=== PATIENT | female | born 1990 | race Caucasian/White ===

== ENCOUNTER 2022-02-02 12:36 | Outpatient (CLI) | payer OTHER, SELFPAY ==
--- NOTE | 2022-02-02 13:00 | CRLHL7_ITS ---
For Patients: As a result of the Century Cures Act, medical imaging exams and procedure reports are released immediately into your electronic medical record. You may view this report before your referring provider. If you have questions, please contact your health care provider. INDICATION: Evaluate anatomy. COMPARISON: 11/07/2021 TECHNIQUE: Real time hargrove scale imaging of the fetus was performed as well as color Doppler analysis of the umbilical vessels. FINDINGS: Sonographic imaging demonstrates a single living intrauterine gestation. Fetus demonstrates a regular cardiac rate of 149 beats per minute. Fetus has a vertex position. The placenta lies posteriorly without evidence of placenta previa. The edge of the placenta is located 6.1 cm from the internal cervical os. Amniotic fluid volume appears normal. Single deepest vertical pocket: 5.0 cm. The cervix is closed and measures 5.1 cm in length. The composite ultrasound gestational age is calculated at 22 weeks 6 days with an estimated sonographic due date of 06/02/2022. The estimated weight is 492 grams which lies at the 59th %. The following biometric measurements were obtained: Biparietal diameter: 5.5 cm/22 weeks 6 days 78th% Head circumference: 20.7 cm/22 weeks 6 days 72nd% Abdominal circumference: 17.4 cm/22 weeks 2 days 54th% Femur length: 3.8 cm/22 weeks 0 days 41st% The HC/AC ratio measures: 1.19 range (1.05-1.01) On anatomic survey, there is a normal appearance of the cerebral ventricles, cavum septi pellucidi, cisterna magna and cerebellum. The nose, lips, and facial profile appear normal. The cervical, thoracic and lumbar spine are well visualized and appear normal. There is a normal four-chamber heart view and the left and right ventricular outflow tracts appear normal. The diaphragm and stomach appear normal. The kidneys and bladder also appear normal. Minimal bilateral pelviectasis is present measuring less than 3 millimeters, this is considered normal and does not require follow-up. There is a normal three-vessel cord and there is an eccentric cord insertion site. The four extremities appear normal. IMPRESSION: Single living intrauterine with sonographic gestational age 22 weeks 6 days and sonographic due date of 06/02/2022. Sonographic age 6 days ahead of the clinical age. Estimated weight 59th percentile. Abdominal circumference 54th percentile. Anatomic survey within normal limits. Dictated by Hernesto Harris MD @ 02/02/2022 2:57:26 PM (Electronically Signed)
== END 2022-02-02 12:37 | disposition home or self-care (01) ==
LOC: US 12:38
PROVIDERS: PCP Family Medicine; Visit Provider Advanced Practice Midwife
DX: Z34.92 Encounter for supervision of normal pregnancy, unspecified, second trimester (principal); Z3A.22 22 weeks gestation of pregnancy
CPT/HCPCS: 76805

== ENCOUNTER 2022-04-27 10:45 | Outpatient (CLI) | payer OTHER, SELFPAY ==
--- NOTE | 2022-04-27 10:45 | CRLHL7_ITS ---
For Patients: As a result of the Century Cures Act, medical imaging exams and procedure reports are released immediately into your electronic medical record. You may view this report before your referring provider. If you have questions, please contact your health care provider. INDICATION: Third trimester scan, evaluate growth. SIZE GREATER THAN DATES COMPARISON: 02/02/2022 TECHNIQUE: Real time hargrove scale imaging of the fetus was performed. FINDINGS: Sonographic imaging demonstrates a single living intrauterine gestation. Fetus demonstrates a regular cardiac rate of 152 beats per minute. Fetus has a vertex position. The placenta lies fundal. Amniotic fluid volume appears normal and there is a single deepest vertical pocket: 4.8 cm. The estimated weight is 2561gm which lies at the 73rd %. On the prior OB ultrasound exam dated 02/02/2022 the estimated weight was at the 59th%. BPD 91st percentile. HC 79th percentile. AC 74th percentile. FL 56th percentile. The HC/AC ratio measures 1.05 range (0.93-1.10). IMPRESSION: Sonographic gestational age 35 weeks 3 days and sonographic due date 05/29/2022. Sonographic age 10 days ahead of the clinical age. Estimated weight 73rd percentile. Abdominal circumference 74th percentile. Dictated by Hernesto Harris MD @ 04/27/2022 11:38:32 AM (Electronically Signed)
== END 2022-04-27 10:46 | disposition home or self-care (01) ==
LOC: US 10:46
PROVIDERS: PCP Family Medicine; Visit Provider Advanced Practice Midwife
DX: O36.63X0 Maternal care for excessive fetal growth, third trimester, not applicable or unspecified (principal); Z3A.35 35 weeks gestation of pregnancy
CPT/HCPCS: 76816

== ENCOUNTER 2022-05-04 10:10 | Outpatient (CLI) | payer OTHER, SELFPAY ==
[2022-05-05 17:17] LABS: Rapid Plasma Reagin (RPR) Non Reactive (Non Reactive)
== END 2022-05-04 10:11 | disposition home or self-care (01) ==
LOC: NFLDREF 10:10
PROVIDERS: PCP Family Medicine; Visit Provider Obstetrics & Gynecology
DX: Z34.93 Encounter for supervision of normal pregnancy, unspecified, third trimester (principal); Z3A.35 35 weeks gestation of pregnancy
CPT/HCPCS: 86592

== ENCOUNTER 2022-05-08 17:08 | Outpatient (CLI) | payer OTHER, SELFPAY ==
[2022-05-08] VITALS (8 sets, daily range): BP systolic 116–133; BP diastolic 59–75; PULSE 79–81; RESP 18; TEMP 37; O2SAT 98
--- NOTE | 2022-05-08 17:31 | PM.OBHPAP1 ---
OB - H&P; HPI Antepartum History of Present Illness Date Seen: 05/08/22 Chief complaint: MATERNITY Narrative: Gaye Orellana is a 32 year old -1-4-6 woman at 35 weeks, 4 days gestation by trimester ultrasound, MARQUIS 06/08/2022, who presented this afternoon to clinic complaining of generalized itching. This has been present for about 3 days. She does not feel it on the soles of her feet. It is the most intense in her chest, where she has some excoriations. She does report seasonal allergies, worse at this time of year. She takes Claritin on occasion, but has not recently. Upon presentation, blood pressure was elevated to 140/80. She has no history of gestational hypertension or preeclampsia. She denies any headache or visual changes. She does have continuous discomfort in her right upper quadrant. She has new onset severe pitting edema as well. She had a reactive NST in clinic. However, her labs were notable for ALT of 70, AST 56. Protein to creatinine ratio was 0.30. The remainder of her HELLP labs were normal. She was sent to the Center for observation. Her is otherwise complicated by/notable for: Repeat delivery scheduled for 38 weeks on 05/25/22. Doesn't want baby to be circumcised and doesn't want to be asked. Specific Issues/Plans Blood Type: A positive??Needs labs drawn, did not go to lab after last visit (04/27). 1. History of Section x3 ?? ? First was for twins and then 2 repeat; at new OB expressed interest in TOLAC, reviewed VBA3C not an option at this hospital. At 26w stated planning a . ?? ? Repeat section scheduled at 38 weeks on 05/25/2022 2. Smoker ?? ? 11 cigarettes per day 3. Grand-multip. 4. Asthma, with recent sinusitis. She was treated with ampicillin. She is currently using rescue inhaler multiple times a day. 5. History of labor at 30 2/7 weeks with Twins ?? ? 2 term deliveries after 6. Presumed uncontrolled GDM-declining all GDM screening (1hr GTT or one week of testing), did take glucola drink and instructions home at 26 week visit - in case she has time to do test Growth US done 04/27 EFW 73% 7. Carpal Tunnel and De Quervian's Tenosynovitis (aka mother's wrist) - script for wrist splint sent. Can do PT/Ortho if needed 8. Very limited PNC. NOB, 26wks, and 34 wks. Flu: Declines Covid: Declines Tdap: Review of Systems Status of ROS: Reports: 6 or more systems reviewed and unremarkable except as noted in History and below Meds Home Medications and Allergies Home Medications Medication Instructions Recorded Confirmed Type prenat.vits,reagan,nzj-bvwa-lxeho 1 tab PO QDAY 03/03/22 05/08/22 History albuterol sulfate 90 mcg/actuation 1 inh inhalation Q4-6H PRN 04/27/22 05/08/22 History breath activated powder inhaler Allergies Allergy/AdvReac Type Severity Reaction Status Date / Time adhesive tape AdvReac Redness of Verified 05/08/22 14:25 Skin OB - H&P: Exam Physical Exam: Vital signs: Pulse BP Pulse Ox 80 116/67 98 05/08/22 17:21 05/08/22 17:21 05/08/22 17:18 Narrative: Physical exam: General: No acute distress Psych: Alert and oriented x3, full affect HEENT: Normocephalic, atraumatic Neck: No cervical adenopathy, no thyromegaly Heart: Regular rate and rhythm, no murmur rub or gallop Lungs: Clear to auscultation bilaterally Abdomen: Soft, nontender, gravid, cephalic lie Lower extremities: 4+ edema bilateral ankles Pelvic exam: Deferred OB - Results Labs Labs: NST: Baseline 140 / accels present / no decels /moderate variability. Reactive, reassuring NST. CBC notable for Hb 10.1, normal platelets. BUN 9 creatinine low AST 56, ALT 70 Protein to creatinine ratio 0.30 OB - A/P Antepartum Assessment and Plan (1) Elevated blood pressure affecting in third trimester, antepartum: Status: Acute Assessment and Plan: One elevated BP in clinic, in the setting of diffuse pruritus and elevated transaminases. Differential diagnosis includes cholestasis of and preeclampsia with severe features. If this represents cholestasis, timing of delivery will depend on the height of elevation of bile acids. If this represents preeclampsia with severe features, delivery is indicated now. She will be hospitalized for observation of blood pressures and repeat labs. She will be given betamethasone at time of admission. (2) Previous section: Problem details: X3 Status: Acute Assessment and Plan: She will have repeat at diagnosis of severe preeclampsia or later if she has cholestasis of with bile acids less than 100. (3) Tobacco use disorder: Problem details: One [id number] Status: Acute Assessment and Plan: We discussed nicotine replacement in the hospital. (4) Elevated liver transaminase level: Status: Acute
[2022-05-08 20:43] LABS: Basophils Absolute Auto 0.01 K/uL (0.00-0.30); Basophils Percent Auto 0.1 % (0.0-3.0); Eosinophils Absolute Auto 0.03 K/uL (0.00-0.50); Eosinophils Percent Auto 0.4 % (0.0-7.0); Hemoglobin* 9.9 gm/dL (12.0-16.0); Immature Granulocytes Abs Auto 0.05 K/uL (0.00-0.30); Lymphocytes Percent Auto 18.9 % (20-44); Mean Corpuscular HGB Conc 33 gm/dL (32-36); Mean Corpuscular Hemoglobin 28 pg (26-34); Mean Corpuscular Volume 85 fL (80-100); Monocytes Percent Auto 7.4 % (0.0-11.0); Neutrophils Percent Auto 72.5 % (42.0-72.0); Platelet Count* 140 K/uL (140-440); RDW Coefficient of Variation % 14.2 % (11.5-15.5); Red Blood Count 3.53 m/uL (4.00-5.20); White Blood Count* 6.93 K/uL (4.50-11.00)
[2022-05-08 20:52] LABS: Amphetamine Screen Urine Negative (Negative); Barbiturate Screen Urine Negative (Negative); Benzodiazepines Screen Urine Negative (Negative); Cannabinoid Screen Urine Negative (Negative); Cocaine Screen Urine Negative (Negative); Methadone Screen Urine Negative (Negative); Methamphetamines Screen Urine Negative (Negative); Opiate Screen Urine Negative (Negative); Oxycodone Screen Urine Negative (Negative); Phencyclidine Screen Urine Negative (Negative); Slide Review Reflex No; Tricyclic Antidepressant Urine Negative (Negative)
[2022-05-08 21:33] LABS: Alanine Aminotransferase* 66 U/L (4-35); Aspartate Amino Transferase* 50 U/L (12-35); Blood Urea Nitrogen* 3 mg/dL (5-24); Creatinine* 0.3 mg/dL (0.5-1.5); Estimated Glomerular Filt Rate 145 ml/min
--- NOTE | 2022-05-08 21:48 | PM.OBPNL ---
Subjective Date Seen: 05/08/22 Narrative: Patient admitted due to concerns of cholestasis of vs preeclampsia with severe features. Patient admitted for BP monitoring, lab work follow up and betamethasone. Since admission patient has refused betamethasone injection, states that she is afraid of needles. Blood pressure monitoring has been normal, no elevated blood pressures so far. No headaches, no visual changes, patient does complain of abdominal tightening, pain. She describes deandre constantly. She has complained of itchiness in her body. NST has remained category 1. Lab work repeated tonight, platelets decreased to 140, liver enzymes AST 55 to 50, ALT 70 to 66. Normal BUN and creatinine. 24 hour urine collection under way. Objective Vital Signs: Last Vital Signs Temp 98.6 F 05/08/22 17:23 Pulse 80 05/08/22 20:52 Resp 18 05/08/22 17:23 BP 130/68 05/08/22 20:52 Pulse Ox 98 05/08/22 17:18 Contractions Monitor mode: External Contraction pattern: Irregular Contraction intensity: Mild Assessment Assessment: other Status: Category l Heart Rate Baseline: 140 Piano Case Maker Variability: Moderate (6-25) Monitor Accelerations: Present Monitor Decelerations: None Plan Plan: 1. Patient understands recommendation for continued monitoring overnight, at this time, there is no clear evidence of preeclampsia with severe features, will allow to eat and will continue to monitor vital signs closely, will repeat a set of labs in the morning. 2. Higher on my differential is cholestasis due to body itching, will treat overnight with Vistaril, would start Ursodiol in am if BPs continue to be normal, would also consider to order abdominal US, hepatitis panel(If preeclampsia with severe features is ruled out). 3. Will continue to respectfully offer betamethasone overnight. 4. Will repeat NST twice overnight so that she can rest. So far it has remained category 1.
--- NOTE | 2022-05-08 23:43 | PC.OBNST ---
NST Note NST Note Start: 05/08/22 17:31 Freq: ONCE Status: Active Protocol: Document 05/08/22 22:00 ANALIA (Rec: 05/08/22 23:43 ANALIA [id number]) NST Note 10 Para (# of births) 5 EDC 06/08/22 Gestational Age In Weeks & Days 35 Weeks & 4 Days High Risk Factors High Blood Pressure - Gestational,History of Labor/Delivery Patient Presented with Complaint(s) of Other Other Complaints Pt. sent over from clinic for Observation:serial BP's, EFM, 24 hour urine, Betamethasone. Pt. repeatedly refused Betamethasone. Pt. agitated and wanting to leave. RN communicated the plan of care and why and pt. would agree. At 2255, after agreeing to the overnight plan, she states she is leaving. She did sign the AMA form. Dr. Jourdan Tejada aware. Reactive Yes Appropriate for Gestational Age Yes DK Aleman Date 05/08/22 Reactive Yes Appropriate for Gestational Age Yes DK Mak RN Date 05/08/22 OB NST charge Yes Complete NST Note via Write Note Yes The provider's electronic signature indicates the NST is reactive/appropriate for gestational age. *Note to provider: If an addendum is required, open the patient's chart and click on the note under the Nurse/Allied Health tab.
== END 2022-05-08 23:15 | disposition left against medical advice (07) ==
LOC: OB OUT 17:09 → OB 17:14
PROVIDERS: PCP Family Medicine; Visit Provider Obstetrics & Gynecology
DX: O13.3 Gestational [pregnancy-induced] hypertension without significant proteinuria, third trimester (principal); O26.613 Liver and biliary tract disorders in pregnancy, third trimester; K83.1 Obstruction of bile duct; Z3A.35 35 weeks gestation of pregnancy; O99.333 Smoking (tobacco) complicating pregnancy, third trimester; F17.210 Nicotine dependence, cigarettes, uncomplicated; O24.419 Gestational diabetes mellitus in pregnancy, unspecified control
CPT/HCPCS: 36415; 59025; 80306; 82239; 82247; 82248; 82565; 82570; 84156; 84450; 84460; 84520; 85025; 96372; 99213; J0702

== ENCOUNTER 2022-05-12 11:22 | Outpatient (CLI) | payer OTHER, SELFPAY ==
--- NOTE | 2022-05-12 12:15 | CRLHL7_ITS ---
For Patients: As a result of the Century Cures Act, medical imaging exams and procedure reports are released immediately into your electronic medical record. You may view this report before your referring provider. If you have questions, please contact your health care provider. INDICATION: CHOLESTASIS IN TECHNIQUE: Real time hargrove scale imaging of the fetus was performed. COMPARISON: 04/27/2022 FINDINGS: Sonographic imaging demonstrates a single living intrauterine gestation. Fetus demonstrates a regular cardiac rate of 154 beats per minute. Fetus has a vertex position. The placenta lies fundal. Amniotic fluid volume appears normal and there is a single deepest pocket of 5.1 cm. The estimated weight is 295 agm which lies at the 62nd %. On the prior OB ultrasound dated 04/27/2022 the estimated weight was at the 73rd percentile. BPD 79th percentile. HC 50th percentile. AC 77th percentile. FL 29th percentile. The fetus was active and demonstrated normal breathing movements. There was normal flexion and extension of the trunk and extremities. IMPRESSION: Normal biophysical profile score 8/8. Sonographic gestational age 36 weeks 5 days and sonographic due date of 06/04/2022. Sonographic age 4 days ahead of the clinical age. Estimated weight 62nd percentile. Abdominal circumference 77th percentile. Dictated by Hernesto Harris MD @ 05/15/2022 10:35:32 AM (Electronically Signed)
== END 2022-05-12 11:23 | disposition home or self-care (01) ==
LOC: US 11:23
PROVIDERS: PCP Family Medicine; Visit Provider Obstetrics & Gynecology
DX: O26.613 Liver and biliary tract disorders in pregnancy, third trimester (principal); K83.1 Obstruction of bile duct; Z3A.36 36 weeks gestation of pregnancy
CPT/HCPCS: 76816; 76819; 82239; 82565; 84450; 84460; 84520

== ENCOUNTER 2022-05-18 10:01 | Outpatient (CLI) | payer OTHER, SELFPAY ==
--- NOTE | 2022-05-18 09:45 | CRLHL7_ITS ---
For Patients: As a result of the Century Cures Act, medical imaging exams and procedure reports are released immediately into your electronic medical record. You may view this report before your referring provider. If you have questions, please contact your health care provider. INDICATION: Cholestasis COMPARISON: 05/12/2022 TECHNIQUE: Real time hargrove scale imaging of the fetus was performed. Without non-stress testing. FINDINGS: Sonographic imaging demonstrates a single living intrauterine gestation. Fetus demonstrates a regular cardiac rate of 154 beats per minute. Fetus has a vertex position. The amniotic fluid volume appears normal and there is a single deepest pocket measurement of 4.7 cm. The fetus was active and demonstrated normal breathing movements. There was normal flexion and extension of the trunk and extremities. IMPRESSION: Normal biophysical profile score of 8 out of 8. Dictated by Hernesto Harris MD @ 05/18/2022 10:51:18 AM (Electronically Signed)
== END 2022-05-18 10:02 | disposition home or self-care (01) ==
PROVIDERS: PCP Family Medicine; Visit Provider Obstetrics & Gynecology
DX: O26.619 Liver and biliary tract disorders in pregnancy, unspecified trimester (principal); K83.1 Obstruction of bile duct
CPT/HCPCS: 76819

== ENCOUNTER 2022-05-23 09:15 | Outpatient (CLI) | payer OTHER, SELFPAY ==
--- NOTE | 2022-05-23 09:15 | CRLHL7_ITS ---
For Patients: As a result of the Century Cures Act, medical imaging exams and procedure reports are released immediately into your electronic medical record. You may view this report before your referring provider. If you have questions, please contact your health care provider. INDICATION: Cholestasis, hypertension. TECHNIQUE: Ultrasound OB pelvis transabdominal. Real-time hargrove-scale imaging of the fetus was performed without stress testing. COMPARISON: Ob biophysical profile 05/18/2022. FINDINGS: Single living intrauterine gestation. Fetus heart activity: Regular cardiac rate at 155 beats per minute. Fetus has a vertex orientation. Amniotic fluid volume appears normal. Single deepest pocket measures 3.2 cm. breathing movements, motion, and tone were all observed. IMPRESSION: Single viable intrauterine with a biophysical profile 8/8. Dictated by Rashaad Murillo MD @ 05/23/2022 11:11:51 AM (Electronically Signed)
== END 2022-05-23 09:16 | disposition home or self-care (01) ==
LOC: US 09:16
PROVIDERS: PCP Family Medicine; Visit Provider Obstetrics & Gynecology
DX: O26.619 Liver and biliary tract disorders in pregnancy, unspecified trimester (principal); K83.1 Obstruction of bile duct; O16.3 Unspecified maternal hypertension, third trimester
CPT/HCPCS: 76819

== ENCOUNTER 2022-05-25 05:39 | Inpatient (IN) | payer OTHER, SELFPAY ==
[2022-05-25] VITALS (24 sets, daily range): BP systolic 107–127; BP diastolic 63–105; PULSE 53–100; RESP 14–20; TEMP 36.4–37.1; O2SAT 96–100; BMI 30.9
[2022-05-25] MEDS: LACTATED RINGERS 1000 ML 1,000 ML 825 ML IV (06:38)
[2022-05-25 07:09] LABS: SARS PCR* Negative SARS-CoV-2 (Negative)
[2022-05-25 07:29] LABS: Basophils Absolute Auto 0.02 K/uL (0.00-0.30); Basophils Percent Auto 0.3 % (0.0-3.0); Eosinophils Absolute Auto 0.04 K/uL (0.00-0.50); Eosinophils Percent Auto 0.5 % (0.0-7.0); Hematocrit 30.2 % (33.0-51.0); Immature Granulocytes Abs Auto 0.04 K/uL (0.00-0.30); Mean Corpuscular HGB Conc 33 gm/dL (32-36); Mean Corpuscular Hemoglobin 27 pg (26-34); Mean Corpuscular Volume 83 fL (80-100); Neutrophils Percent Auto 72.7 % (42.0-72.0); Platelet Count* 135 K/uL (140-440); Red Blood Count 3.62 m/uL (4.00-5.20); White Blood Count* 7.41 K/uL (4.50-11.00)
[2022-05-25] MEDS: CEFAZOLIN 2 GM INJ IVP (07:45)
[2022-05-25 07:46] LABS: Slide Review Reflex No
[2022-05-25] MEDS: LACTATED RINGERS 1000 ML 1,000 ML 125 ML IV (08:16)
[2022-05-25 09:00] LABS: Basophils Absolute Auto 0.01 K/uL (0.00-0.30); Basophils Percent Auto 0.1 % (0.0-3.0); Eosinophils Absolute Auto 0.05 K/uL (0.00-0.50); Eosinophils Percent Auto 0.7 % (0.0-7.0); Hematocrit 30.2 % (33.0-51.0); Immature Granulocytes Abs Auto 0.02 K/uL (0.00-0.30); Lymphocytes Percent Auto 17.1 % (20-44); Mean Corpuscular HGB Conc 33 gm/dL (32-36); Mean Corpuscular Hemoglobin 28 pg (26-34); Mean Corpuscular Volume 83 fL (80-100); Monocytes Percent Auto 9.4 % (0.0-11.0); Neutrophils Percent Auto 72.4 % (42.0-72.0); Platelet Count* 134 K/uL (140-440); RDW Coefficient of Variation % 15.2 % (11.5-15.5); Red Blood Count 3.62 m/uL (4.00-5.20); White Blood Count* 7.54 K/uL (4.50-11.00)
[2022-05-25 09:07] LABS: Slide Review Reflex No
--- NOTE | 2022-05-25 09:17 | W.ANESCHARGE ---
Anesthesia Charges Start Date/Time Anesthesia Start Date: 05/25/22 Anesthesia Start Time: 07:22 Stop Date/Time Anesthesia Stop Date: 05/25/22 Anesthesia Stop Time: 09:08 Summary Emergency: No
[2022-05-25] MEDS: KETOROLAC 30 MG/ML inj IVP ×2 (09:25→15:31)
--- NOTE | 2022-05-25 09:37 | W.ANESCHARGE ---
Anesthesia Charges Start Date/Time Anesthesia Start Date: 05/25/22 Anesthesia Start Time: 07:22 Stop Date/Time Anesthesia Stop Date: 05/25/22 Anesthesia Stop Time: 09:08 Summary Emergency: No
--- NOTE | 2022-05-25 09:38 | P.NB_ITS ---
Nerve Block Nerve Block Time Seen by Provider: 09:00 Date Seen: 05/25/22 Type of block requested by surgeon for post-operative analgesia: TAP Side: bilateral Time out performed: Yes Verification of patient name: Yes Verification of date of : Yes Site marking: site marked Name of person performing procedure: Anthony Continuous monitoring Was continuous monitoring of O2 sat, B/P, burlap worker, recorded every 15 minutes?: Yes Procedure Checklist: sterile prep, needles and gloves Ultrasound guided. Images saved: Yes Medications given in 5ml increments after negative aspiration: Marcaine %: 0.25 mL: 30 Needle gauge: 20 and Exparel mL: 10 Patient tolerated procedure well: Yes Additional comments: Needle noted adjacent to nerve Block Charges Block Charge (with Pro Fee): TAP Bilateral Use of Ultrasound Machine for Block: Yes- US Guidance/pain block
[2022-05-25 10:08] LABS: Amphetamine Screen Urine Negative (Negative); Barbiturate Screen Urine Negative (Negative); Benzodiazepines Screen Urine Negative (Negative); Buprenorphine Screen Urine Negative (Negative); Cannabinoid Screen Urine Negative (Negative); Cocaine Screen Urine Negative (Negative); Methadone Screen Urine Negative (Negative); Methamphetamines Screen Urine Negative (Negative); Opiate Screen Urine Negative (Negative); Oxycodone Screen Urine Negative (Negative); Phencyclidine Screen Urine Negative (Negative); Tricyclic Antidepressant Urine Negative (Negative)
[2022-05-25] MEDS: ACETAMINOPHEN 500 MG TABLET 1000 MG PO ×2 (11:25→19:26)
--- NOTE | 2022-05-25 12:04 | PM.OBPRCCS ---
Procedure Pre-op/Post-op diagnoses: Pre-Op/Post-Op Diagnoses Operation Date: 05/25/22 07:00 <No data on this case meets the specified criteria> Procedure Done: Global Procedure Details: Procedures Operation Date: 05/25/22 07:00 Actual Procedure Side Surgeon p Section Ashley Quarles MD Vegetable Canner: Miriam Edmond Estimated blood loss (mL): 629 Disposition: floor Anesthesia type: Spinal Complications: None Narrative: PREOPERATIVE DIAGNOSES: 1. Intrauterine at 38 0/7 weeks' gestation. 2. History of prior low transverse section x3, desiring repeat. 3. Intrahepatic cholestasis of POSTOPERATIVE DIAGNOSES: 1. Same, now delivered NAME OF PROCEDURE: Repeat low transverse section. Lysis of adhesions. ANESTHESIA: Spinal. COMPLICATIONS: None. QUANTITATIVE BLOOD LOSS: 629 mL. Drains: Argueta to gravity. FINDINGS: Live-born male infant, cephalic presentation, Apgars 9 and 9 at 1 and 5 minutes respectively. weight pending. Normal appearing uterus, tubes, and ovaries. Dense adhesions between fascia, rectus muscles, omentum, anterior peritoneum, lower uterine segment, bladder. PROCEDURE: After obtaining informed consent, the patient was taken to the operating room where spinal anesthesia was obtained and found to be adequate. She was prepared and draped in the normal sterile fashion in the dorsal supine position with a leftward tilt. A Pfannenstiel skin incision was made with a scalpel along the line of the patient's previous Pfannenstiel scar. This incision was carried down to the underlying layer of fascia with the scalpel and Bovie. The fascia was incised in the midline and the incision extended laterally. The superior and inferior aspects of the fascial incision were grasped with Lacy clamps, elevated and the underlying rectus muscles dissected off sharply and with Rodríguez scissors. This dissection took an increased amount of time given the dense adhesions. The rectus muscles were then in the midline. The adhesions between the bladder and lower uterine segment were taken down sharply with Metzenbaum scissors. The Chris O retractor was then placed into the incision. The lower uterine segment was then incised in a transverse fashion with the scalpel. Upon entry into the uterus, clear amniotic fluid was noted. The uterine incision was extended cephalo caudally with blunt finger fractionation. The 's head was delivered atraumatically, followed by the remainder of the 's body. The nose and mouth were suctioned with the bulb suction. The cord was doubly clamped and cut, and the infant was handed off the field to [facility] for evaluation. The placenta was delivered spontaneously with umbilical cord traction and fundal massage. The uterus was cleared of all clots and debris. The uterine incision was reapproximated in a running locking fashion with a 0 Vicryl suture. A 2nd layer of the same suture was used to imbricate in horizontal fashion. The gutters were inspected and cleared of blood clots. All instruments and retractors were removed. The anterior peritoneum was reapproximated in a running fashion with a 3-0 Vicryl suture. The subfascial tissues were carefully inspected and hemostasis assured. The fascia was reapproximated in a running fashion with a looped 0 Vicryl suture. The subcutaneous tissue was inspected and hemostasis secured. The subcutaneous fat layer was reapproximated with interrupted sutures of 3-0 Vicryl. The skin was closed in a subcuticular fashion with 4-0 Monocryl. Pressure dressing applied. The patient tolerated the procedure well. Sponge, lap, needle, and instrument counts were reported as correct x2. The patient was taken to the recovery room, awake, and in stable condition. She did receive 2 grams of IV Ancef preoperatively and 1 g of TXA after cord clamp. [place] total score - 1 minute: 9 total score - 5 minute: 9
[2022-05-25] MEDS: ONDANSETRON 2 MG/ML inj 4 MG IV (15:01)
[2022-05-25] MEDS: IBUPROFEN 600 MG TABLET PO (21:02)
[2022-05-26] VITALS (10 sets, daily range): BP systolic 116–127; BP diastolic 74–83; PULSE 70–84; RESP 16; TEMP 36.9–37.1; O2SAT 97–98
[2022-05-26] MEDS: ACETAMINOPHEN 500 MG TABLET 1000 MG PO ×3 (01:14→15:02)
[2022-05-26] MEDS: IBUPROFEN 600 MG TABLET PO ×3 (04:54→19:00)
--- NOTE | 2022-05-26 07:39 | PM.OBPNCS1 ---
OB - PN: A/P Assessment and Plan (1) care and examination immediately after delivery: Status: Acute (2) Cholestasis during : Status: Acute (3) Status post delivery: Status: Acute (4) Elevated liver transaminase level: Status: Acute Plan day: 1 Plan: routine postop care Comments: Anticipate discharge tomorrow. Anemia related to acute blood loss. Hbg not yet resulted this morning. Admission was 10.0, anticipate anemia. Iron ordered. OB - PN: Subj Subjective Date Seen: 05/26/22 Narrative: The patient feels well.? The pain is well controlled with current medications.? She has no new complaints.? Urinary output is adequate and she is voiding without difficulty.? Has a good appetite, is tolerating a general diet, is passing flatus, and has had a bowel movement.? Has small amount of rubra lochia.? She is ambulating well. She is formula feeding. OB - PN: Obj Exam Physical Exam: Vital signs: Temp Pulse Resp BP Pulse Ox O2 Del Method 98.7 F 70 16 116/74 97 05/26/22 01:11 05/26/22 01:11 05/26/22 06:20 05/26/22 01:11 05/26/22 01:11 05/26/22 01:11 Constitutional: Constitutional: no acute distress and cooperative Routine Respiratory Exam: Respiratory: Present CTA bilaterally Routine Cardiovascular Exam: Cardiovascular: Present RRR Routine Abdominal Exam: Abdominal: Present soft Fundus: Present firm Routine Extremities Exam: Extremities: Present full ROM and normal inspection Routine Psychiatric Exam: Psychiatric: Present normal affect and cooperative Wound Management: Method: other (Abdominal lower transverse incision) Examination: Present dressed, clean and dry Urinary Catheter Management: Urethral: Cath placed during this visit: yes, but has since been removed by the nurse Urethral indwelling: No Reason for continuing: decision to DC catheter Insertion date: 05/25/22 Insertion time: 07:46 Removal date: 05/25/22 Removal time: 18:15 OB - PN: Obj Data Labs Labs: Laboratory Results - last 24 hr 05/25/22 05/25/22 05/25/22 06:20 06:20 Unknown WBC 7.41 7.54 RBC 3.62 L 3.62 L Hgb 10.0 L Hct 30.2 L 30.2 L MCV 83 83 MCH 27 28 MCHC 33 33 RDW Coeff of Gisell 15.0 15.2 Plt Count 135 L 134 L Neut % (Auto) 72.7 H 72.4 H Lymph % (Auto) 17.[address] [place] % (Auto) 9.0 9.4 Eos % (Auto) 0.5 0.7 Baso % (Auto) 0.3 0.1 Neut # (Auto) 5.40 5.50 Lymph # (Auto) 1.[address] [place] # (Auto) 0.70 0.70 Eos # (Auto) 0.04 0.05 Baso # (Auto) 0.02 0.01 Abs Immat Gran (auto) 0.04 0.02 Urine Opiates Screen Negative Ur Buprenorphine Scrn Negative Ur Oxycodone Screen Negative Urine Methadone Screen Negative Ur Propoxyphene Screen Negative Ur Barbiturates Screen Negative U Tricyclic Antidepress Negative Ur Phencyclidine Scrn Negative Ur Amphetamines Screen Negative U Methamphetamines Scrn Negative U Benzodiazepines Scrn Negative Urine Cocaine Screen Negative U Marijuana (THC) Screen Negative
[2022-05-26] MEDS: DOCUSATE SODIUM 100 MG CAPSULE PO ×2 (08:34→19:36)
[2022-05-26] MEDS: FERROUS SULFATE 325 MG TABLET PO (08:34)
--- NOTE | 2022-05-26 12:03 | PM.OBDSCS1 ---
DS: Providers Provider Date Seen: 05/26/22 Date of admission: 05/25/22 05:39 Primary care physician: Hernesto Juan MD Admitting Clinician: Ashley Quarles MD Consults: 05/25/22 09:50 Consult to [facility] [CONS] Routine Comment: Reason for Consult:: Substance Abuse Screening Attending Physician on discharge: Milagro Riley CNM DS: Diagnosis Discharge Diagnosis (1) Status post delivery: Status: Acute (2) care and examination immediately after delivery: Status: Acute (3) Cholestasis during : Status: Acute (4) Elevated liver transaminase level: Status: Acute Exam Const: Vital Signs, click to edit/add: Vital Signs - 24 hr 05/25/22 15:17 05/25/22 21:00 05/25/22 19:20 Temperature 98.1 F Pulse Rate [Pulse Oximeter] 63 73 Respiratory Rate 16 16 16 Blood Pressure [Ri ght Arm] 126/80 116/73 Pulse Oximetry 97 98 Oxygen Delivery Me thod Room Air Room Air 05/25/22 20:20 05/25/22 21:20 05/25/22 22:20 Temperature Pulse Rate [Pulse Oximeter] Respiratory Rate 16 16 16 Blood Pressure [Ri ght Arm] Pulse Oximetry Oxygen Delivery Me thod 05/25/22 23:20 05/26/22 01:11 05/26/22 05:09 Temperature 98.7 F Pulse Rate [Pulse Oximeter] 70 Respiratory Rate 16 16 16 Blood Pressure [Ri ght Arm] 116/74 Pulse Oximetry 97 Oxygen Delivery Me thod Room Air 05/26/22 00:20 05/26/22 01:20 05/26/22 02:20 Temperature Pulse Rate [Pulse Oximeter] Respiratory Rate 16 16 16 Blood Pressure [Ri ght Arm] Pulse Oximetry Oxygen Delivery Me thod 05/26/22 03:20 05/26/22 04:20 05/26/22 05:20 Temperature Pulse Rate [Pulse Oximeter] Respiratory Rate 16 16 16 Blood Pressure [Ri ght Arm] Pulse Oximetry Oxygen Delivery Me thod 05/26/22 06:20 Temperature Pulse Rate [Pulse Oximeter] Respiratory Rate 16 Blood Pressure [Ri ght Arm] Pulse Oximetry Oxygen Delivery Me thod Documenting provider has reviewed patient's vital signs: yes Common normals: oriented x3 and alert Orientation/consciousness: Yes awake Neuro: Common normals: oriented x3 Sensorium/orientation: awake and alert Psych: Common normals: mental status grossly normal OB - DS: Summary Hospital Course Hospital Course: Gaye is a that is POD 1. This patient was seen by me this morning for rounding. She initially had planned to stay one more night but is now requesting to go home. She is feeling more alert than when I previously seen her. She declined labs this morning but is planning to continue iron supplements when discharged. She is stable and reports good support at home, please see previous note for further documentation. Patient declines narcotics but will send home small supply for pain control at home. Peripartum Data Procedures: Procedures Operation Date: 05/25/22 07:00 Actual Procedure Side Surgeon p Section Ashley Quarles MD complications: none [place] Gender: Male Infant Discharge Plan: Home Status at Discharge Functional status at discharge: independent ambulation Overall status at discharge: patient is progressing back to baseline Time Spent with Patient Time attestation: Total time spent providing and/or coordinating discharge services: Time spent: Less than 30 minutes Discharge Plan Discharge Disposition: Home, Self-Care Date of Admission: 05/25/22 05:39 Attending Provider on Discharge: Milagro Riley Primary Care Provider: Hernesto Juan Condition: Stable Anticipated Discharge Date/Time: 05/26/22 12:24 Discharge Medications: New acetaminophen 500 mg Tablet 1,000 mg PO Q6H PRN (Reason: Pain) Qty: 0 0RF docusate sodium 100 mg Capsule 100 mg PO DAILY Qty: 90 0RF ibuprofen 600 mg Tablet 600 mg PO Q6H PRN (Reason: Pain) Qty: 60 0RF oxycodone 5 mg Tablet 5 - 10 mg PO Q4H PRN (Reason: Pain) Qty: 10 0RF Continued prenat.vits,reagan,[id number]-[id number] Tablet 1 tab PO QDAY albuterol sulfate 90 mcg/actuation aerosol powdr breath activated 1 inh inhalation Q4-6H PRN fluticasone propionate 110 mcg/actuation HFA aerosol inhaler 2 inh inhalation BID Qty: 12 6RF ferrous sulfate 325 mg (65 mg iron) tablet 325 mg PO BID Qty: 90 1RF Discontinued ursodiol 300 mg capsule 300 mg PO BID Qty: 30 0RF Discharge Orders: Discharge Order (Routine); Ordered 05/26/22 Ordered By: Milagro Riley Additional Instructions: Discharge instructions were reviewed with the patient including signs and symptoms of infection and home going medications Lifting Restrictions: 20 pounds for 6 weeks No not submerge incision under water X 2 weeks? Nothing vaginally for 6 weeks: no tampons or intercourse Do not drive while taking narcotic pain medication(s) Off Work or School for 8 weeks 2-week visit: incision check, discuss feeding concerns, review control options and screen for anxiety/depression. 6-week visit for an annual exam. consultation services are available to all mothers and babies for the first year after delivery.? To make an appointment, please call [phone]. Follow Up Appointments: [facility] [Provider Group] Forms: [facility] Info Instructions
== END 2022-05-26 19:00 | disposition home or self-care (01) | DRG 540 ==
PROVIDERS: Admitting Provider Obstetrics & Gynecology; PCP Family Medicine; Visit Provider Obstetrics & Gynecology
PROC: 10D00Z1 Extraction of Products of Conception, Low, Open Approach (ICD-10-PCS; CPT 59514; principal; 2022-05-25 07:00)
DX: O34.211 Maternal care for low transverse scar from previous cesarean delivery (principal); O26.62 Liver and biliary tract disorders in childbirth; K83.1 Obstruction of bile duct; O99.892 Other specified diseases and conditions complicating childbirth; N73.6 Female pelvic peritoneal adhesions (postinfective); O90.81 Anemia of the puerperium; D62 Acute posthemorrhagic anemia; Z3A.38 38 weeks gestation of pregnancy; Z37.0 Single live birth
CPT/HCPCS: 01961; 36415; 64488; 76942; 80306; 85018; 85025; 86850; 86900; 86901; 87635; A9270; J0690; J1885; J2250; J2274; J2370; J2405; J2590; J2704; J7120